=== PATIENT | female | born 1990 | race Caucasian/White ===

== ENCOUNTER 2017-04-25 20:35 | Emergency (ER) | payer OTHER ==
[~2017-04-25] VITALS: Ht 157.5 cm; Wt 66.2 kg
[~2017-04-25 20:35] MED LIST: COLA100C3 PO; DICL10TA PO; PERCOCET PO; PRENTAB26 PO; TUMS500C PO; VITAPRTA PO
[2017-04-25] MEDS ORDERED: LIDO5DIS36 TD (20:53)
[2017-04-25] MEDS ORDERED: NAPR500T2 PO (20:53)
[2017-04-25] MEDS ORDERED: CYCL5TA PO (20:53)
[2017-04-25] MEDS ORDERED: methylPREDNISolone INJ 125 MG/2 ML VIAL (J2930) IM ONE (22:00)
[2017-04-25] MEDS ORDERED: PRED20TA PO ×2 (22:06→22:54)
[2017-04-25] MEDS ORDERED: VALI5TAB PO (22:06)
[2017-04-25 22:45] VITALS: BP 125/73
== END 2017-04-25 22:59 | disposition home or self-care (01) ==
LOC: M ED 21:38
DX: M62.838 Other muscle spasm (principal)
CPT/HCPCS: 96372; 99282; J2930; J3360

== ENCOUNTER 2018-05-06 05:39 | Inpatient (IN) | payer OTHER ==
[2018-05-06 06:24] LABS: HEMOGLOBIN 12.9 g/dl (12.0-15.5); MEAN CORPUSCULAR HGB CONC 33.1 g/dl (32.0-36.5); MEAN CORPUSCULAR VOLUME 84.8 fl (80.0-96.0); PLATELET COUNT, AUTOMATED 141 10^3/uL (150-450); RED CELL DISTRIBUTION WIDTH 13.3 % (11.5-14.5); WHITE BLOOD COUNT 5.6 10^3/uL (4.0-10.0)
[2018-05-06] MEDS: LR 1,000 ML IV ×4 (06:30→20:02)
[2018-05-06 06:32] LABS: CONTROL LINE HCG INT CTR LINE PRESENT; HCG, SERUM QUALITATIVE NEGATIVE (NEGATIVE)
[2018-05-06] MEDS: BUPIVACAINE LIPOSOME/PF 1.3% 20 ML VIAL (13.3MG/ML)(EXPAREL) As Ordered (07:05)
[2018-05-06] MEDS ORDERED: PROPOFOL 200 MG/20 ML VIAL As Ordered (07:11)
[2018-05-06] MEDS ORDERED: fentaNYL 250 MCG/5 ML INJECTION (J3010) As Ordered (07:11)
[2018-05-06] MEDS ORDERED: ROCURONIUM BROMIDE 50 MG/5 ML VIAL As Ordered ×2 (07:11→08:30)
[2018-05-06] MEDS ORDERED: dexameTHASONE 4 MG/ML 1ML VIAL (J1100) As Ordered (07:11)
[2018-05-06] MEDS ORDERED: ONDANSETRON 4MG/2ML VIAL (J2405) As Ordered (07:11)
[2018-05-06] MEDS ORDERED: LIDOCAINE 2% INJ 100 MG/5 ML SDV (FOR ANES.) As Ordered (07:11)
[2018-05-06] MEDS ORDERED: MIDAZOLAM INJ 2 MG/2 ML VIAL (J2250) As Ordered (07:12)
[2018-05-06] MEDS ORDERED: HYDROmorphone HCL 2 MG/ML 1ML VIAL (J1170) As Ordered (08:49)
[2018-05-06] MEDS ORDERED: GLYCOPYRROLATE INJ 0.2 MG/ML 2 ML VIAL As Ordered (08:49)
[2018-05-06] MEDS ORDERED: NEOSTIGMINE 10 MG/10 ML VIAL (J2710) As Ordered (08:49)
[2018-05-06] MEDS: METHYLENE BLUE 0.5% (5MG/ML) 10 ML AMP (PROVAYBLUE)(Q9968 PER 1MG) As Ordered ×2 (10:00→10:53)
[2018-05-06] MEDS: BUPIVACAINE HCL 0.25% 30 ML VIAL As Ordered (11:09)
[2018-05-06] MEDS ORDERED: fentaNYL 100 MCG/2 ML INJECTION (J3010) IV (12:00)
[2018-05-06] MEDS ORDERED: PROMETHAZINE INJ 25 MG/ML VIAL (J2550) IV (12:00)
[2018-05-06] MEDS ORDERED: HYDROMORPHONE HCL 0.5 MG/ 0.5 ML SYRINGE (J1170 PER 1) IV (12:00)
[2018-05-06] MEDS ORDERED: ONDANSETRON 4MG/2ML VIAL (J2405) IV (12:00)
[2018-05-06] MEDS ORDERED: PERCOCET 5MG/325MG TAB PO ×2 (12:00)
[2018-05-06] MEDS: PERCOCET 5MG/325MG TAB PO ×2 (14:28→19:50)
[2018-05-06] MEDS: KETOROLAC 30 MG/ML VIAL (J1885) IV ×2 (16:31→23:27)
[2018-05-06] MEDS: DOCUSATE SODIUM 100 MG CAP PO (20:59)
[2018-05-07] MEDS: PERCOCET 5MG/325MG TAB PO ×3 (00:02→08:48)
[2018-05-07] MEDS: LR 1,000 ML IV (05:34)
[2018-05-07] MEDS: KETOROLAC 30 MG/ML VIAL (J1885) IV ×2 (05:34→11:15)
[2018-05-07 07:31] LABS: BASO % 0.2 % (0.0-1.0); EOS % 0.1 % (0.0-3.0); HEMATOCRIT 28.3 % (36.0-47.0); IMMATURE GRANULOCYTE % 0.5 % (0-3.0); LYMPH # 2.1 10^3/uL (1.5-6.5); LYMPH % 19.2 % (24.0-44.0); MEAN CORPUSCULAR HEMOGLOBIN 28.5 pg (27.0-33.0); MEAN CORPUSCULAR HGB CONC 33.6 g/dl (32.0-36.5); MONO # 0.8 10^3/uL (0.0-0.8); MONO % 7.1 % (0.0-5.0); NEUTROPHILS % 72.9 % (36.0-66.0); PLATELET COUNT, AUTOMATED 119 10^3/uL (150-450); RED BLOOD COUNT 3.33 10^6/uL (4.00-5.40); RED CELL DISTRIBUTION WIDTH 13.4 % (11.5-14.5); WHITE BLOOD COUNT 10.9 10^3/uL (4.0-10.0)
[2018-05-07 07:35] LABS: POS COUNT POS FLAG
[2018-05-07 07:36] LABS: HEMOGLOBIN 9.5 g/dl (12.0-15.5)
[2018-05-07] MEDS: DOCUSATE SODIUM 100 MG CAP PO (08:46)
[2018-05-07] MEDS ORDERED: IBUPROFEN 800 MG TAB PO (19:00)
== END 2018-05-07 13:15 | disposition home or self-care (01) | DRG 743 ==
LOC: M OR 05:39 → M PED 12:12
PROC: 0UT94ZZ Resection of Uterus, Percutaneous Endoscopic Approach (ICD-10-PCS; principal; 2018-05-06 07:30)
PROC: 0UT74ZZ Resection of Bilateral Fallopian Tubes, Percutaneous Endoscopic Approach (ICD-10-PCS; 2018-05-06 07:30)
PROC: 0TJB8ZZ Inspection of Bladder, Via Natural or Artificial Opening Endoscopic (ICD-10-PCS; 2018-05-06 07:30)
DX: N93.8 Other specified abnormal uterine and vaginal bleeding (principal); R10.2 Pelvic and perineal pain; N73.6 Female pelvic peritoneal adhesions (postinfective)